=== PATIENT | male | born 1995 | race Asian ===

== ENCOUNTER 2021-10-26 02:56 | Emergency (ER) | payer MEDICAID, OTHER ==
[~2021-10-26] VITALS: Ht 167.6 cm; Wt 65.8 kg
--- NOTE | 2021-10-26 03:12 | NUR ---
[facility] FOR AMS AND DRUG OD. FOUND UNCONSCIOUS IN PARKING LOT AND WAS GIVEN 2MG NARCAN BY EMS WITH IMPROVED MENTATION. PT ORIENTED TO NAME AND FOLLOWS COMMANDS BUT REMAINS LETHARGIC. PT CHANGED INTO GOWN AND PLACED ON MONITOR AND V/S WNL O2 SAT 99% RA. [employer] AT BEDSIDE.
--- NOTE | 2021-10-26 03:20 | NUR ---
URINE COLLECTED AND SENT TO LAB
--- NOTE | 2021-10-26 03:29 | NUR ---
EMT AT BEDSIDE FOR EKG
--- NOTE | 2021-10-26 03:29 | NUR ---
[facility]ES[facility] AT BEDSIDE FOR BLOOD DRAW
[2021-10-26] MEDS ORDERED: IV NS 0.9% 1,000 ML IV ONE (03:30)
[2021-10-26 03:44] LABS: BASOPHILS # (AUTO) 0.1 K/uL (0.0-0.2); BASOPHILS % (AUTO) 0.7 % (0.0-2.0); EOSINOPHILS % (AUTO) 1.5 % (0.0-6.0); HEMATOCRIT 44 % (39-51); LYMPHOCYTES # (AUTO) 1.9 K/uL (0.8-4.8); LYMPHOCYTES % (AUTO) 19.1 % (20.0-44.0); MEAN CORPUSCULAR HGB CONC 34 g/dl (31.0-36.0); MEAN CORPUSCULAR VOLUME 83 fL (80-96); MONOCYTES # (AUTO) 0.9 K/uL (0.1-1.30); MONOCYTES % (AUTO) 8.6 % (2.0-12.0); NEUTROPHILS # (AUTO) 7.1 K/uL (1.8-8.9); NEUTROPHILS % (AUTO) 70.1 % (43.0-81.0); PLATELET COUNT (AUTO) 318 K/uL (150-450); RED BLOOD CELL COUNT(AUTO) 5.33 MIL/uL (4.5-6.0); WHITE BLOOD COUNT (AUTO) 10.1 K/uL (4.3-11.0)
[2021-10-26 03:47] LABS: BILIRUBIN,URINE NEGATIVE (NEGATIVE); COLOR,URINE YELLOW (YELLOW); LEUKOCYTE ESTERASE ,URINE NEGATIVE (NEGATIVE); NITRITE, URINE NEGATIVE (NEGATIVE); PH,URINE 6.5 (5.0-8.0); PROTEIN,URINE NEGATIVE (NEGATIVE); UGLUCOSE NEGATIVE (NEGATIVE); UROBILINOGEN,URINE 0.2 EU/dL (0.2)
--- NOTE | 2021-10-26 03:59 | NUR ---
PT TAKEN TO AND RETURNED FROM CT SCAN VIA [facility]
[2021-10-26 04:11] LABS: CARBON DIOXIDE 30 mmol/L (21-32); CHLORIDE 104 mmol/L (98-107); CREATININE 1.1 mg/dL (0.6-1.3); GLUCOSE 143 mg/dL (74-106); POTASSIUM 3.5 mmol/L (3.5-5.1); SODIUM SERUM 141 mmol/L (136-145); UREA NITROGEN, BLOOD 13 mg/dL (7-18)
[2021-10-26 04:17] LABS: ALANINE AMINOTRANSFERASE 22 U/L (12-78); ALKALINE PHOSPHATASE 83 U/L (46-116); ASPARTATE AMINOTRANSFERASE 19 U/L (15-37); BILIRUBIN,DIRECT 0.1 mg/dL (0.0-0.2); BILIRUBIN,TOTAL 0.4 mg/dL (0.2-1.0); TOTAL PROTEIN, SERUM 7.4 g/dL (6.4-8.2)
[2021-10-26 04:19] LABS: ACETAMINOPHEN < 2 ug/ml (10-30); ALCOHOL, BLOOD < 3 mg/dL (0-0)
[2021-10-26] MEDS ORDERED: NALO1DIS2 IM (10:08)
[2021-10-26 10:46] VITALS: BP 120/68
--- NOTE | 2021-10-26 10:48 | NUR ---
Patient discharged homeless in stable condition. Written and verbal after care instructions given. Patient verbalizes understanding but unable to state where he's going to go. Homeless waiver signed by patient but refused to take copy.
== END 2021-10-26 10:47 | disposition home or self-care (01) ==
LOC: ER 02:59
DX: T40.601A Poisoning by unspecified narcotics, accidental (unintentional), initial encounter (principal); R41.82 Altered mental status, unspecified; F17.200 Nicotine dependence, unspecified, uncomplicated; Z60.2 Problems related to living alone; Y92.89 Other specified places as the place of occurrence of the external cause
CPT/HCPCS: 36415; 70450; 71045; 80048; 80076; 80143; 80307; 80320; 81003; 85025; 93005; 96360; 99285; J7030; G0480